=== PATIENT | female | born 1965 | race Two or more races ===

== ENCOUNTER 2021-11-28 12:17 | Day surgery (SDC) | payer OTHER ==
[~2021-11-28] VITALS: Ht 162.6 cm; Wt 127.0 kg
[~2021-11-28 12:17] MED LIST: ALTACE1.25 MG PO; HYDRODIURIL12.5 MG PO; LEVO-T25 MCG PO; TOPROL XL25 M1 PO
[2021-11-28] MEDS ORDERED: OXYC1TAB9 PO (17:39)
[2021-11-28] MEDS ORDERED: BACTRIM DS TAB1 EACH PO (17:39)
== END 2021-11-28 22:50 | disposition home or self-care (01) ==
LOC: CIR.AMB 12:17
PROVIDERS: ATTEND Orthopaedic Surgery Sports Medicine
DX: S82.62XA Displaced fracture of lateral malleolus of left fibula, initial encounter for closed fracture (principal); Z20.822 Contact with and (suspected) exposure to COVID-19; Z88.0 Allergy status to penicillin; I10 Essential (primary) hypertension; I34.1 Nonrheumatic mitral (valve) prolapse; Z99.89 Dependence on other enabling machines and devices; G47.33 Obstructive sleep apnea (adult) (pediatric); E66.01 Morbid (severe) obesity due to excess calories